=== PATIENT | male | born 1960 | race Hispanic/Latino ===

== ENCOUNTER 2018-02-27 11:22 | Emergency (ER) | payer SELFPAY ==
[2018-02-27] MEDS ORDERED: Morphine 4 MG/ML VIAL ONE (11:46)
[2018-02-27 12:16] LABS: #Eosinphils 0.2 thou/uL (0.0-0.7); #Lymphocytes 1.9 thou/uL (1.20-3.40); #Monocytes 0.8 thou/uL (0.11-0.59); #Neutrophils 7.9 thou/uL (1.40-6.50); %Basophils 0.2 % (0.0-1.0); %Eosinophils 1.8 % (0.0-10.0); %Lymphocytes 17.6 % (21.0-51.0); %Neutrophils 73.3 % (42.0-75.0); Hemoglobin 14.1 g/dL (14.0-18.0); Mean Corpuscular HGB CONC 31.6 g/dL (32.0-36.0); Mean Corpuscular Hemoglobin 27.3 pg (27.0-31.0); Mean Corpuscular Volume 86.4 fL (78.0-98.0); Mean Platelet Volume 7.6 fL (7.4-10.4); Platelet Count 325 thou/uL (130-400); Red Blood Cell (RBC) Count 5.17 mill/uL (4.70-6.10); White Blood Cell (WBC) Count 10.8 thou/uL (4.8-10.8)
[2018-02-27 12:20] LABS: INR-International Normal Ratio 1.1
[2018-02-27 12:21] LABS: PTT 36.5 SEC (22.9-36.1)
[2018-02-27] MEDS ORDERED: Ondansetron PF 4 MG/2 ML Vial ONE (12:26)
[2018-02-27 12:39] LABS: ALT (SGPT) 49 U/L (8-55); AST (SGOT) 47 U/L (5-34); Alkaline Phosphatase 149 U/L (40-150); Anion Gap 14 mmol/L (10-20); BUN (Urea Nitrogen) 10 mg/dL (8.4-25.7); Bilirubin, Total 0.6 mg/dL (0.2-1.2); Calc. Creatinine Clearance 0 mL/min (70-130); Calcium 9.5 mg/dL (7.8-10.44); Carbon Dioxide 27 mmol/L (22-29); Chloride 101 mmol/L (98-107); Estimated GFR-MDRD 88; Globulin 4.2 g/dL (2.4-3.5); Glucose 103 mg/dL (70-105); Lipase 34 U/L (8-78); Potassium 4.1 mmol/L (3.5-5.1); Protein, Total 8.2 g/dL (6.0-8.3); Sodium 138 mmol/L (136-145)
--- NOTE | 2018-02-27 13:03 | ULT ---
RIGHT UPPER QUADRANT ULTRASOUND; 02/27/2018 HISTORY: Right upper quadrant abdominal pain. COMPARISON: None available. FINDINGS: The liver is at the upper limits of normal in size, measuring 17 cm in craniocaudal dimensions. The liver demonstrates diffuse increased echogenicity, with mild coarsened echotexture, likely attributab le to diffuse fatty infiltration. This does limit evaluation of the hepatic parenchyma. No definite focal hepatic lesion is appreciated. There is a subcentimeter, focal, hypoechoic area in the liver, adjacent to the gallbladder, probably related to a small focal area of fatty sparing. There is echogenic material seen within the dependent portion of the gallbladder lumen, suggesting sl udge. No gallbladder calculus is seen, and there is no gallbladder wall thickening or pericholecysti c fluid. The common duct is dilated, with several measurements of the common duct obtained, with the common duct ranging from 0.7 cm to 0.86 cm. No intrahepatic biliary ductal dilatation is appreciate d on this exam. The visualized portions of the IVC and the right kidney demonstrate a normal sonographic appearance. The right kidney measures 10.8 cm in length. The majority of the pancreas is obscured. The visualized portion of the pancreas demonstrates an ech ogenic appearance and mild nonspecific prominence in AP dimensions. IMPRESSION: 1. Prominence of the extrahepatic common duct without intrahepatic biliary ductal dilatation visuali zed. The exact etiology for extrahepatic duct dilatation is uncertain, based on this examination. F ollow-up CT scan examination may be helpful. 2. Diffuse fatty infiltration of the liver. 3. Gallbladder sludge. No gallbladder calculus is seen. POS: [facility]
[2018-02-27] MEDS ORDERED: Lidocaine Viscous Sol 2% 15 ml UD Cup ONE (15:02)
[2018-02-27] MEDS ORDERED: Mag-Al 1200 mg/1200 mg/30 ML UDCUP ONE (15:02)
[2018-02-27] MEDS ORDERED: Pantoprazole 40 MG VIAL ONE (15:02)
--- NOTE | 2018-03-02 13:48 | EKG ---
Test Reason : Blood Pressure : / mmHG Vent. Rate : 087 BPM Atrial Rate : 087 BPM P-R Int : 150 ms QRS Dur : 088 ms QT Int : 364 ms P-R-T Axes : 027 026 037 degrees QTc Int : 438 ms Normal sinus rhythm Normal ECG Confirmed by NILDA TAVERAS ([id number]), senior technical editor MONICO RUANO ([id number] on 03/02/2018 1:47:49 PM Referred By: Confirmed By:NILDA TAVERAS
== END 2018-02-27 15:50 | disposition home or self-care (01) ==
LOC: ERS 11:22
DX: R10.13 Epigastric pain (principal)
CPT/HCPCS: 36415; 76705; 80053; 83690; 84484; 85025; 85610; 85730; 86850; 86900; 86901; 93005; 96361; 96374; 96375; C9113; J2270; J2405